=== PATIENT | female | born 1995 | race Caucasian/White ===

== ENCOUNTER 2018-11-21 20:17 | Inpatient (IN) | payer OTHER ==
--- NOTE | 2018-11-21 20:47 | EDPHY ---
H & P Stated Complaint: lower abd pain with diarrhea Source: Patient Exam Limitations: No limitations - Personal History LMP (Females 10-55): 1-7 Days Ago Current Tetanus/Diphtheria Vaccine: Unsure Current Tetanus Diphtheria and Acellular Pertussis (TDAP): Unsure - Medical/Surgical History Hx Asthma: No Hx Chronic Respiratory Disease: No Hx Diabetes: No Hx Cardiac Disease: No Hx Renal Disease: No Hx Cirrhosis: No Hx Alcoholism: No Hx HIV/AIDS: No Hx Splenectomy or Spleen Trauma: No Other PMH: denies - Social History Smoking Status: Never smoked Time Seen by Provider: 11/21/18 20:46 HPI/ROS: HPI: This is a 23-year-old female who presents with Chief Complaint: Lower abdominal pain, diarrhea Location: Lower abdomen Quality: Pain and cramping, diarrhea Duration: Less than 12 hr Signs and Symptoms: no fever, no nausea, no vomiting, no hematemesis, + blood in stool, no abdominal bloating, + diarrhea, no back pain, no urinary symptoms, no vaginal bleeding/discharge, no indigestion, no chest pain, no shortness of breath Timing: Acute, intermittent episodes Severity: Moderate Context: Patient is here visiting for spring from [place], [place] presents with less than 12 hr history of a lower abdominal pain described as cramping and 10-15 episodes of diarrhea that is bloody in nature. She reports that she ate fish and chips yesterday evening around 7:00 p.m. And then within 30 min she started to developed lower abdominal pain and cramping with diarrhea. Menses ended yesterday. Patient brought in stool sample. Modifying Factors: None Comment: ROS: A comprehensive 10 system review of systems is otherwise negative aside from elements mentioned in the history of present illness. MEDICAL/SURGICAL/SOCIAL HISTORY: Medical history: Generally healthy. Does not take any regular medications. LMP 1-7 days ago. Surgical history: Denies Social history: Nonsmoker. Family history noncontributory. CONSTITUTIONAL: Well appearing young adult white female, awake and alert, no obvious distress HEENT: Atraumatic and normocephalic, PERRL, EOMI. Nares patent; no rhinorrhea; no nasal mucosal edema. Tympanic membranes clear. Oropharynx clear, no exudate and moist pink mucosa. Airway patent. No lymphadenopathy. No meningismus. Cardiovascular: Normal S1/S2, regular rate, regular rhythm, without murmur rub or gallop. PULMONARY/CHEST: Symmetrical and nontender. Clear to auscultation bilaterally. Good air movement. No accessory muscle usage. ABDOMEN: Soft, nondistended, reproducible nonspecific lower abdominal tenderness, no rebound, no guarding, no peritoneal signs, no masses or organomegaly. No CVAT. Hyperactive bowel sounds heard x4. EXTREMITIES: 2/2 pulses, strength 5/5, no deformities, no clubbing, no cyanosis or edema. NEUROLOGICAL: no focal neuro deficits. GCS 15. SKIN: Warm and dry, no erythema. no rash. Good capillary refill. (ArvinTeresadavid) Constitutional: Initial Vital Signs Temperature (C) 37.3 C 11/21/18 20:19 Heart Rate 97 11/21/18 20: Respiratory Rate 16 11/21/18 20:19 Blood Pressure 124/84 H 11/21/18 20:19 O2 Sat (%) 95 11/21/18 20:19 O2 Delivery Mode Room Air Allergies/Adverse Reactions: No Known Allergies Allergy (Unverified 11/21/18 20:22) Home Medications: Medication Instructions Recorded NK [No Known Home Meds] 11/21/18 Medical Decision Making - Diagnostics Imaging Results: Imaging Impressions Abdomen CT 11/21/18 21:18 Impression: Findings compatible with colitis of infectious or inflammatory nature, correlation with clinical history of inflammatory bowel disease is recommended. Danielle Larsen was notified of these findings by telephone at 10:05 PM on 11/21/2018. ED Course/Re-evaluation: Vital signs reviewed and stable upon arrival. No systemic signs. IV access, laboratory studies, urinalysis, stool pathogen panel, CT abdomen and pelvis scan ordered Patient given 1 L normal saline, IV morphine 2 mg and IV promethazine 12.5 mg 9: Labs reviewed. WBC 14 K, no left shift, potassium 3.4. No signs of anemia/platelet dysfunction/ZHAO/elevated LFTs/electrolyte imbalance/ pancreatitis. 0: Called By radiologist, Dr. Rehman, who reports CT abdomen and pelvis scan shows diffuse colitis in the transverse, descending and sigmoid colon but no abscess. Started on IV Cipro and IV Flagyl. Urinalysis shows increased specific gravity and trace [place] consistent with mild dehydration. 9: ED decision to consult for admission. Spoke with Dr. Cruz agrees to admit patient and provide further care. This patient was seen under the supervision of my secondary supervising physician. I evaluated care for this patient with attending. Discussed this patient with Dr. Ramires. (Danielle Larsen) I did not see this patient while she was in the emergency department. However her care was discussed with the PA while the patient was in the department. I agree with treatment plan and management (Luke Ramires) Differential Diagnosis: Abdominal pain including but not limited to appendicitis, cholecystitis, gastritis and urinary tract infection. (Danielle Larsen) - Data Points Laboratory Results: Laboratory Results 11/21/18 20:30 11/21/18 20:30 11/21/18 11/21/18 11/21/18 21:56 20:30 20:30 WBC RBC Hgb Hct MCV MCH MCHC RDW Plt Count MPV Neut % (Auto) Lymph % (Auto) Wright % (Auto) Eos % (Auto) Baso % (Auto) Nucleat RBC Rel Count Absolute Neuts (auto) Absolute Lymphs (auto) Absolute Monos (auto) Absolute Eos (auto) Absolute Basos (auto) Absolute Nucleated RBC Immature Gran % Immature Gran # Sodium Potassium Chloride Carbon Dioxide Anion Gap BUN Creatinine Estimated GFR Glucose Calcium Total Bilirubin 0.6 mg/dL mg/dL (0.1-1.4) Conjugated Bilirubin 0.4 mg/dL mg/dL (0.0-0.5) Unconjugated Bilirubin 0.2 mg/dL mg/dL (0.0-1.1) AST 18 IU/L IU/L (14-46) ALT 26 IU/L IU/L (9-52) Alkaline Phosphatase 76 IU/L IU/L (38-126) Total Protein 8.4 g/dL H g/dL (6.3-8.2) Albumin 4.9 g/dL g/dL (3.5-5.0) Lipase 37 IU/L IU/L (23-300) Beta HCG, Qual NEGATIVE Urine Color YELLOW Urine Appearance CLEAR Urine pH 5.0 (5.0-7.5) Ur Specific [place] > 1.060 H (1.002-1.030) Urine Protein NEGATIVE (NEGATIVE) Urine Ketones TRACE H (NEGATIVE) Urine Blood NEGATIVE (NEGATIVE) Urine Nitrate NEGATIVE (NEGATIVE) Urine Bilirubin NEGATIVE (NEGATIVE) Urine Urobilinogen NEGATIVE EU EU (0.2-1.0) Ur Leukocyte Esterase NEGATIVE (NEGATIVE) Urine Glucose NEGATIVE (NEGATIVE) 11/21/18 11/21/18 20:30 20:30 WBC 14.36 10^3/uL H 10^3/uL (3.80-9.50) RBC 4.89 10^6/uL 10^6/uL (4.18-5.33) Hgb 14.5 g/dL g/dL (12.6-16.3) Hct 42.2 % % (38.0-47.0) MCV 86.3 fL fL (81.5-99.8) MCH 29.7 pg pg (27.9-34.1) MCHC 34.4 g/dL g/dL (32.4-36.7) RDW 12.4 % % (11.5-15.2) Plt Count 317 10^3/uL 10^3/uL (150-400) MPV 9.8 fL fL (8.7-11.7) Neut % (Auto) 72.5 % % (39.3-74.2) Lymph % (Auto) 18.0 % % (15.0-45.0) Wright % (Auto) 8.7 % % (4.5-13.0) Eos % (Auto) 0.3 % L % (0.6-7.6) Baso % (Auto) 0.2 % L % (0.3-1.7) Nucleat RBC Rel Count 0.0 % % (0.0-0.2) Absolute Neuts (auto) 10.41 10^3/uL H 10^3/uL (1.70-6.50) Absolute Lymphs (auto) 2.58 10^3/uL 10^3/uL (1.00-3.00) Absolute Monos (auto) 1.25 10^3/uL H 10^3/uL (0.30-0.80) Absolute Eos (auto) 0.05 10^3/uL 10^3/uL (0.03-0.40) Absolute Basos (auto) 0.03 10^3/uL 10^3/uL (0.02-0.10) Absolute Nucleated RBC 0.00 10^3/uL 10^3/uL (0-0.01) Immature Gran % 0.3 % % (0.0-1.1) Immature Gran # 0.04 10^3/uL 10^3/uL (0.00-0.10) Sodium 138 mEq/L mEq/L (135-145) Potassium 3.4 mEq/L L mEq/L (3.5-5.2) Chloride 103 mEq/L mEq/L (97-110) Carbon Dioxide 24 mEq/l mEq/l (22-31) Anion Gap 11 mEq/L mEq/L (6-14) BUN 9 mg/dL mg/dL (7-23) Creatinine 0.7 mg/dL mg/dL (0.6-1.0) Estimated GFR > 60 Glucose 98 mg/dL mg/dL (70-100) Calcium 9.7 mg/dL mg/dL (8.5-10.4) Total Bilirubin Conjugated Bilirubin Unconjugated Bilirubin AST ALT Alkaline Phosphatase Total Protein Albumin Lipase Beta HCG, Qual Urine Color Urine Appearance Urine pH Ur Specific [place] Urine Protein Urine Ketones Urine Blood Urine Nitrate Urine Bilirubin Urine Urobilinogen Ur Leukocyte Esterase Urine Glucose Medications Given: Metronidazole/Sodium Chloride (Flagyl 500 Mg (Premix)) 100 mls @ 100 mls/hr IV EDNOW ONE PRN Reason: Protocol Stop: 11/21/18 23:15 Last Admin: 11/21/18 22:28 Dose: 100 mls Discontinued Medications Sodium Chloride (Ns) 1,000 mls @ 0 mls/hr IV EDNOW ONE; Wide Open PRN Reason: Protocol Stop: 11/21/18 20:58 Last Admin: 11/21/18 21:03 Dose: 1,000 mls Morphine Sulfate (Morphine) 2 mg IVP EDNOW ONE Stop: 11/21/18 21:19 Last Admin: 11/21/18 21:23 Dose: 2 mg Promethazine HCl (Phenergan) 12.5 mg IVP EDNOW ONE Stop: 11/21/18 21:19 Last Admin: 11/21/18 21:24 Dose: 12.5 mg Departure - Departure Disposition: [facility] Inpatient Acute Clinical Impression: Pancolitis Condition: Fair
[2018-11-21 20:51] LABS: PLATELET COUNT 317 10^3/uL (150-400)
[2018-11-21] MEDS ORDERED: NS 1,000 ML IV ONE (20:57)
[2018-11-21] MEDS ORDERED: PROMETHAZINE HCL 25 MG/ML INJ IVP ONE (21:18)
[2018-11-21] MEDS ORDERED: IOPAMIDOL (ISOVUE-300) 100 ML BTL ONE (21:21)
[2018-11-21] MEDS ORDERED: CIPROFLOXACIN 400 MG/DEXTROSE 200 ML IV ONE (22:16)
[2018-11-21] MEDS ORDERED: LORazepam 0.5 MG TAB PO PRN (23:09)
[2018-11-21] MEDS ORDERED: ACETAMINOPHEN 325 MG TAB PO PRN (23:09)
[2018-11-21] MEDS ORDERED: ONDANSETRON 4 MG/2 ML VIAL IVP PRN (23:09)
[2018-11-21] MEDS ORDERED: ONDANSETRON DISINTEGRATING 4 MG TAB PO PRN (23:09)
[2018-11-21] MEDS ORDERED: PROMETHAZINE HCL 25 MG/ML INJ IVP PRN (23:09)
[2018-11-21] MEDS ORDERED: HYDROCODONE/APAP 5/325 TAB PO PRN (23:09)
[2018-11-21] MEDS ORDERED: NS W/ 20 KCl/L 1,000 ML IV SCH (23:15)
--- NOTE | 2018-11-22 04:35 | GHP ---
[f rep st] HISTORY AND PHYSICAL DATE OF ADMISSION: 11/21/2018 PRIMARY CARE PHYSICIAN: Out of state. SOURCE: Patient provides history, appears reliable. EMR was reviewed and case discussed with ED pro vider. CHIEF COMPLAINT: Abdominal pain, bloody diarrhea. HISTORY OF PRESENT ILLNESS: This is a very pleasant 23-year-old female who is visiting [place] for spring break from [place], [place] who presents to the emergency department today with complaint s of 10 to 15 episodes of bloody diarrhea. Patient reports that yesterday evening she had dinner, wh ich included fish and chips. Approximately 30 minutes after intake, she developed abdominal pain, cr amping, and diarrhea. The patient denies any abdominal distention or bloating. No nausea or vomitin g. No fevers or chills. No known sick contacts. The patient without any previous history of GI iss ues as she is generally quite healthy. REVIEW OF SYSTEMS: Ten systems reviewed, negative except as noted above. ALLERGIES: No known drug allergies. HOME MEDICATIONS: None. PAST MEDICAL HISTORY: Patient denies. PAST SURGICAL HISTORY: Patient denies. FAMILY HISTORY: Negative for irritable bowel disease or other GI disorders. SOCIAL HISTORY: Patient resides in [place], [place]. She denies any tobacco use. She drinks o ccasionally. She has used marijuana occasionally. No other illicit drugs. CODE STATUS: Full. PHYSICAL EXAMINATION: VITAL SIGNS: Upon arrival, blood pressure 124/84, heart rate is 97, respirato ry rate 16, O2 saturation 95% on room air, temperature 37.3. currently available signs; blood pressure is 113/61, heart rate of 63, respiratory rate 16, O2 satura tion 95% on room air with temperature of 36.3. GENERAL: No acute distress. Pleasant, young adult f emale who is lying quietly in bed asleep. She does appear quite fatigued, but nontoxic. HEAD: Norm ocephalic, atraumatic. EYES: Extraocular muscles are grossly intact. Pupils equal, round, and symm etric. Reactive to light bilaterally. No scleral icterus or conjunctival injection. ENT: Mucous m embranes appear slightly dry. No oropharyngeal erythema or exudates. Dentition intact. NECK: Supp le. Trachea midline. CV: Regular rate and rhythm. No murmurs, rubs, or gallops appreciated. RESP IRATORY: Unlabored breathing. Lungs are clear to auscultation bilaterally. No wheezes, rales, or r honchi. ABDOMEN: Hypoactive bowel sounds. Soft. No significant tenderness to palpation. No rebou nd, guarding, or masses appreciated. : No suprapubic tenderness to palpation. No Baer catheter in place. EXTREMITIES: No cyanosis, clubbing, or edema. 2+ pedal pulses. NEURO: Grossly nonfocal . No facial drooping. Moves all extremities. Strength intact. PSYCH: Thought process, content, a nd questions are all appropriate. Patient is pleasant and cooperative. LABORATORY STUDIES: WBC is 14.36, H and H 14.5 and 42.2, MCV 86.3, platelet count is 317, no bands. Sodium is 138, potassium 3.4, chloride 103, CO2 of 24, anion gap 11, BUN 9, creatinine 0.7, GFR grea ter than 60, glucose 98, calcium 9.7. Total bilirubin 0.6, ALT is 26, AST is 18, alkaline phosphatas e 76, total protein is 8.4, albumin 4.9, lipase is 37. Beta HCG is negative. UA; specific gravity o f greater than 1.060, pH of 5.0, trace ketones, otherwise negative. CT abdomen and pelvis: Image and report reviewed. Significant for pancolitis, infectious versus inf lammatory. Correlation of clinical history of inflammatory bowel disease recommended. Lungs are prasanth ar. Liver is normal. Biliary ducts and gallbladder also normal. Small cystic lesion superior pole the right kidney, incompletely characterized, likely simple cyst. No pathologically enlarged lymphad enopathy or masses. Diffuse large bowel wall thickening, submucosal edema involving transverse, desc ending, and sigmoid colon as well as rectum with minimal pericolonic stranding. Mildly prominent vas a recta. Appendix is visualized within normal limits. Scattered reactive mesenteric lymphadenopathy is seen. Moderate fat-containing periumbilical hernia. ASSESSMENT AND PLAN: Pleasant 23-year-old female who is otherwise healthy presents to the emergency department today with complaints of 12 hours of intractable bloody diarrhea. 1. Pancolitis, likely infectious in etiology: The patient does have slight leukocytosis. GI PCR wi ll be obtained. She has been started on Flagyl and ciprofloxacin with improvement in her symptoms. Patient reports she has not had any additional episodes of bloody diarrhea since she has been here. Will plan to repeat a.m. lab testing and monitor H and H. 2. Rectal bleeding: Monitor H and H. No evidence of anemia at this time. Antibiotic therapy as no nehemias above. 3. Abdominal pain has improved. Tylenol p.r.n. Additional pain medications as needed. 4. Fluid, electrolytes, nutrition: IV fluids. Monitor electrolytes. Potassium is minimally decrea sed below lower limits of normal. Advance diet as tolerated. Continue IV fluids overnight for hydra tion. 5. Prophylaxis: SCDs. 6. Code status is full. DISPOSITION: The patient admitted to inpatient status on the med/surg floor for continued IV antibio tics given the extensive nature of her colitis extending throughout the entire colon. /[id number]/MODL
[2018-11-22 05:18] LABS: PLATELET COUNT 237 10^3/uL (150-400)
[2018-11-22 06:15] LABS: CREATINE KINASE 60 IU/L (0-156)
--- NOTE | 2018-11-22 10:14 | ASMTCMCOM ---
CM Note CM Note Notes: Met with Pt. Pt is an 23yr old admitted with Abd pain and bloody diarrhea who has required pain management. Reports she feels much better this morning after a good night sleep and no pain. Pt will likely discharge home independently with partner. CM available should needs arise. Plan: Home independently Date Signed: 11/22/2018 10:13 AM Electronically Signed By:Yecenia Padilla
[2018-11-22] MEDS ORDERED: CIPROFLOXACIN 400 MG/DEXTROSE 200 ML IV SCH (11:00)
--- NOTE | 2018-11-22 11:30 | PDMN ---
Medical Necessity Medical necessity: Pt meets IP criteria as of 11/21/[address] [facility] M-565 ( Inflammatory Bowel Disease); A- 2 days; Pt presents with 10-15 bloody stools, leukocytosis, abdominal pain, CT consistent with colitis extending throughout the entire colon. Anticipate > 2 mn for serial labs, IVF, IV ABX, and pain management.
--- NOTE | 2018-11-22 15:26 | HOSPPROG ---
Hospitalist Progress Note Assessment/Plan: 23yo healthy F here with acute onset bloody diarrhea. #Pancolitis: Impressive amount on CT. Likely infectious but GI PCR negative. - Continue IV cipro/flagyl - IVF - If not improved by AM, will consult GI for consideration of endoscopic evaluation #Hematochezia: H/H normal on admit. - Recheck in AM #Abdominal pain: Improved - Tylenol PRN VTE ppx: SCDs Code: full Diet: advance as able Dispo: Remain inpatient as she's not tolerating PO and has significant inflammation on CT requiring IV treatment. If symptoms better tomorrow, can discharge Subjective: Initially felt better this AM but then started having cramps after drinking water and had several bloody BMs. No fevers. Objective: Vital Signs Temp Pulse Resp BP Pulse Ox 36.8 C 54 L 18 107/75 95 11/22/18 11:38 11/22/18 11:38 11/22/18 11:38 11/22/18 11:38 11/22/18 11:38 Laboratory Results 11/22/18 04:16 11/22/18 04:16 11/21/18 11/22/18 11/23/18 05:59 05:59 05:59 Intake Total 400 Balance 400 - Physical Exam Constitutional: no apparent distress, appears nourished, not in pain Eyes: PERRL, anicteric sclera, EOMI Ears, Nose, Mouth, Throat: moist mucous membranes, hearing normal, ears appear normal, no oral mucosal ulcers Cardiovascular: regular rate and rhythym, no murmur, rub, or gallop Respiratory: no respiratory distress, no rales or rhonchi, clear to auscultation Gastrointestinal: normoactive bowel sounds, soft, non-tender abdomen, no palpable masses Genitourinary: no bladder fullness, no bladder tenderness, no renal bruits Skin: no rashes or abrasions, no fluctuance, no induration Musculoskeletal: full muscle strength, no muscle tenderness, normal joint ROM Neurologic: AAOx3, sensation intact bilaterally Psychiatric: interacting appropriately, not anxious, not encephalopathic, thought process linear ICD10 Worksheet Patient Problems: Problems Problem Status Onset Pancolitis Acute
[2018-11-22 15:34] VITALS: BP 120/74
--- NOTE | 2018-11-22 17:47 | PDDCSUM ---
Discharge Summary Discharge Summary: Date of Admission: 11/21/2018 Date of Discharge: 11/22/2018 Studies: CT abd/pelvis Discharge Diagnoses: 1. Pancolitis, suspect infectious 2. Hematochezia 3. Leukocytosis Brief Hospital Course: 23yo healthy F presented with acute onset bloody diarrhea. She is visiting [place] from [place] on spring. She developed bloody diarrhea approximately 30 minutes after eating fish and chips. No one else she was with became ill. She had roughly 10-15 bowel movement prior to coming to the ED. Here , she had a mild leukocytosis. CT of her abdomen showed pancolitis. GI PCR was negative. Her H/H remained stable. She was started on IV antibiotics and her diarrhea improved. She was no longer having bloody bowel movements but still having some (but significantly fewer) loose stools at time of discharge. She was tolerating PO. She was discharged to complete 3 more days of antibiotics. Return precautions were given. She did improve faster than anticipated and was stable for discharge. Of note, I have lower suspicion for IBD given her presentation and normal inflammatory markers. Medications: Please refer to EMR. I sent a prescription for azithromycin 500mg PO QD #3 to her pharmacy. Follow Up Plan: 1. PCP in [place] Physical Exam: Please see exam from today's progress note.
== END 2018-11-22 18:39 | disposition home or self-care (01) | DRG 387 ==
LOC: F1N 11-22 00:13
PROVIDERS: ADMIT Family Medicine; ATTEND Family Medicine
DX: K51.011 Ulcerative (chronic) pancolitis with rectal bleeding (principal)
CPT/HCPCS: 96365; J0744; J2270; J2405; J2550; Q9967